=== PATIENT | female | born 1995 | race Caucasian/White ===

== ENCOUNTER 2019-05-06 23:09 | Emergency (ER) | payer SELFPAY ==
[2019-05-07 00:31] LABS: ABSOLUTE EOSINOPHILS # (AUTO) 0.3 10^3/uL (0.0-0.6); ABSOLUTE MONOCYTES (AUTO) 0.9 10^3/uL (0.1-1.4); ABSOLUTE NEUT (AUTO) 9.7 10^3/uL (1.7-8.2); BASOPHILS % (AUTO) 0.4 % (0-2); EOSINOPHILS % (AUTO) 2.3 % (0-6); HEMATOCRIT 39.9 % (36.0-47.0); HEMOGLOBIN 13.5 g/dL (12.0-15.5); LYMPHOCYTES % (AUTO) 15.7 % (13-45); MEAN CORPUSCULAR HEMOGLOBIN 29.5 pg (27.0-33.4); MEAN CORPUSCULAR HGB CONC 33.8 g/dL (32.0-36.0); MEAN CORPUSCULAR VOLUME 87 fl (80-97); MONOCYTES % (AUTO) 6.6 % (3-13); PLATELET COUNT 318 10^3/uL (150-450); RED BLOOD COUNT 4.58 10^6/uL (3.72-5.28); RED CELL DISTRIBUTION WIDTH 12.8 % (11.5-14.0); TOTAL CELLS COUNTED % (AUTO) 100 %; WHITE BLOOD COUNT 12.9 10^3/uL (4.0-10.5)
[2019-05-07 00:34] LABS: ALBUMIN 3.9 g/dL (3.5-5.0); ALKALINE PHOSPHATASE 66 U/L (38-126); ANION GAP 8 (5-19); ASPARTATE AMINO TRANSFERASE 30 U/L (14-36); BILIRUBIN,DIRECT 0.2 mg/dL (0.0-0.4); BILIRUBIN,TOTAL 0.4 mg/dL (0.2-1.3); BLOOD UREA NITROGEN 12 mg/dL (7-20); CALCIUM 8.8 mg/dL (8.4-10.2); CARBON DIOXIDE 28 mmol/L (22-30); CHLORIDE 103 mmol/L (98-107); GLUCOSE 81 mg/dL (75-110); POTASSIUM 4.2 mmol/L (3.6-5.0); TOTAL PROTEIN 6.7 g/dL (6.3-8.2)
[2019-05-07 00:46] LABS: APPEARANCE,URINE HAZY; BILIRUBIN,URINE NEGATIVE (NEGATIVE); COLOR,URINE YELLOW; GLUCOSE, URINE NEGATIVE (NEGATIVE); KETONES,URINE NEGATIVE (NEGATIVE); LEUKOCYTE ESTERASE,URINE LARGE (NEGATIVE); NITRITE,URINE NEGATIVE (NEGATIVE); PROTEIN,URINE 30 mg/dL (NEGATIVE); URINE SPECIFIC GRAVITY 1.022
[2019-05-07] MEDS ORDERED: KETOROLAC TROMETHAMINE INJ/PF 30 MG/1 ML SDV IV ONE (02:53)
--- NOTE | 2019-05-07 03:59 | RADIOLOGY REPORT (SQ) ---
EXAM DESCRIPTION: US ABDOMEN LIMITED COMPLETED DATE/TME: 05/07/2019 02:53 CLINICAL HISTORY: 23 years, Female, ruq pain COMPARISON: None. TECHNIQUE: Limited right upper quadrant ultrasound LIMITATIONS: None. FINDINGS: The liver, pancreas, abdominal aorta are unremarkable. Cholelithiasis. The gallbladder is contracted. Stones in the region of the gallbladder neck. Negative sonographic Nails sign. CBD measures 2 mm. Visualized right kidney unremarkable. No ascites IMPRESSION: Cholelithiasis with stones in the region of the gallbladder neck. No sonographic evidence for cholecystitis copyright 2010 [employer]- All Rights Reserved
--- NOTE | 2019-05-07 04:31 | ER Document Report ---
ED GI/ - General Chief Complaint: Abdominal Pain Stated Complaint: ABDOMINAL PAIN Time Seen by Provider: 05/07/19 02:46 Notes: Patient is a 23-year-old female presents to the emergency department for right upper abdominal pain since Monday night. Patient's denying any nausea, vomiting, diarrhea she is denying any fevers, denies dysuria or vaginal discharge, or bleeding. Patient's denying any medical problems, denies taking any medications, has an allergy to Bactrim. States her last menstrual cycle was the end of December. States she did have a miscarriage approximately 2 months ago and has not had regular periods since. TRAVEL OUTSIDE OF THE [place] IN LAST 30 DAYS: No - Related Data Allergies/Adverse Reactions: sulfamethoxazole [From Bactrim] Allergy (Verified 05/06/19 23:11) trimethoprim [From Bactrim] Allergy (Verified 05/06/19 23:11) Past Medical History - General Information source: Patient - Social History Smoking Status: Never Smoker Family History: Reviewed & Not Pertinent Patient has suicidal ideation: No Patient has homicidal ideation: No Renal/ Medical History: Denies: Hx Peritoneal Dialysis Review of Systems - Review of Systems Constitutional: denies: Fever EENT: No symptoms reported Cardiovascular: No symptoms reported Respiratory: No symptoms reported Gastrointestinal: See HPI Genitourinary: No symptoms reported Female Genitourinary: No symptoms reported Musculoskeletal: No symptoms reported Skin: No symptoms reported Hematologic/Lymphatic: No symptoms reported Neurological/Psychological: No symptoms reported Physical Exam - Vital signs Vitals: Temp Pulse Resp BP Pulse Ox 98.8 F 115 H 16 107/62 100 05/06/19 23:59 05/06/19 23:59 05/06/19 23:59 05/06/19 23:59 05/06/19 23:59 - Notes Notes: GENERAL: Alert, interacts well. No acute distress. HEAD: Normocephalic, atraumatic. EYES: Pupils equal, round, and reactive to light. Extraocular movements intact. ENT: Oral mucosa moist, tongue midline. NECK: Full range of motion. Supple. Trachea midline. LUNGS: Clear to auscultation bilaterally, no wheezes, rales, or rhonchi. No respiratory distress. HEART: Regular rate and rhythm. No murmur ABDOMEN: Soft, generalized right upper quadrant abdominal pain noted. Non- distended. Bowel sounds present in all 4 quadrants. No right lower quadrant pain, no left upper or lower quadrant pain noted. EXTREMITIES: Moves all 4 extremities spontaneously. No edema, normal radial and dorsalis pedis pulses bilaterally. No cyanosis. BACK: no cervical, thoracic, lumbar midline tenderness. No saddle anesthesia, normal distal neurovascular exam. NEUROLOGICAL: Alert and oriented x3. Normal speech. cranial nerves II through XII grossly intact PSYCH: Normal affect, normal mood. SKIN: Warm, dry, normal turgor. No rashes or lesions noted. Course - Re-evaluation Re-evalutation: 05/07/19 04:29 Laboratory 05/07/19 05/07/19 05/07/19 00:00 00:00 00:00 WBC 12.9 H RBC 4.58 Hgb 13.5 Hct 39.9 MCV 87 MCH 29.5 MCHC 33.8 RDW 12.8 Plt Count 318 Lymph % (Auto) 15.7 [place] % (Auto) 6.6 Eos % (Auto) 2.3 Baso % (Auto) 0.4 Absolute Neuts (auto) 9.7 H Absolute Lymphs (auto) 2.0 Absolute Monos (auto) 0.9 Absolute Eos (auto) 0.3 Absolute Basos (auto) 0.0 Seg Neutrophils % 75.0 Sodium 138.8 Potassium 4.2 Chloride 103 Carbon Dioxide 28 Anion Gap 8 BUN 12 Creatinine 0.77 Est GFR ( Amer) > 60 Est GFR (MDRD) Non-Af > 60 Glucose 81 Calcium 8.8 Total Bilirubin 0.4 Direct Bilirubin 0.2 Neonat Total Bilirubin Not Reportable Neonat Direct Bilirubin Not Reportable Neonat Indirect Bili Not Reportable AST 30 ALT 29 Alkaline Phosphatase 66 Total Protein 6.7 Albumin 3.9 Lipase 44.9 Urine Color YELLOW Urine Appearance HAZY Urine pH 7.0 Ur Specific [place] 1.022 Urine Protein 30 H Urine Glucose (UA) NEGATIVE Urine Ketones NEGATIVE Urine Blood NEGATIVE Urine Nitrite NEGATIVE Urine Bilirubin NEGATIVE Urine Urobilinogen 8.0 H Ur Leukocyte Esterase LARGE H Urine WBC (Auto) 7 Urine RBC (Auto) 2 Squamous Epi Cells Auto 8 Urine Mucus (Auto) RARE Urine Ascorbic Acid NEGATIVE Urine HCG, Qual NEGATIVE Abdomen Ultrasound 05/07/19 02:53 IMPRESSION: Cholelithiasis with stones in the region of the gallbladder neck. No sonographic evidence for cholecystitis copyright 2011 [employer]- All Rights Reserved Upon reassessment of the patient she states her pain has resolved with Toradol. I discussed with her diagnosis of cholelithiasis and need to follow-up outpatient with surgery. At this time will discharge with return precautions and follow-up re commendations. Verbal discharge instructions given a the bedside and opportunity for questions given. Medication warnings reviewed. Patient is in agreement with this plan and has verbalized understanding of return precautions and the need for primary care follow-up in the next 24-72 hours. This medical record was dictated with voice recognizing software. There may be grammatical, syntax errors that are unintended. - Vital Signs Vital signs: Temp Pulse Resp BP Pulse Ox 97.8 F 100 16 113/64 99 05/07/19 02:43 05/07/19 02:43 05/07/19 02:43 05/07/19 02:43 05/07/19 02:43 - Laboratory Result Diagrams: 05/07/19 00:00 05/07/19 00:00 Laboratory results interpreted by me: 05/07/19 05/07/19 00:00 00:00 WBC 12.9 H Absolute Neuts (auto) 9.7 H Urine Protein 30 H Urine Urobilinogen 8.0 H Ur Leukocyte Esterase LARGE H Discharge - Discharge Clinical Impression: Cholelithiasis Qualifiers: Cholelithiasis location: other site Biliary obstruction: without biliary obstruction Qualified Code(s): K80.80 - Other cholelithiasis without obstruction Condition: Stable Disposition: HOME, SELF-CARE Instructions: Gallbladder Disease ([facility]) Additional Instructions: As we discussed you have been seen and treated in the emergency department for your right upper abdominal pain. Your ultrasound shows that you have gallstones. There are no signs of infection around your gallstones. You should follow-up with a surgeon for elective removal of your gallbladder. Phone numbers to be provided in this packet. Please also return to the emergency room should you have increasing right upper quadrant abdominal pain, fever, uncontrolled vomiting or pain. Forms: Return to Work Referrals: FRANCOIS ARREOLA MD [ACTIVE STAFF] - Follow up as needed
[2019-05-07 04:41] VITALS: BP 115/69
== END 2019-05-07 04:41 | disposition home or self-care (01) ==
LOC: ER 23:09
DX: K80.80 Other cholelithiasis without obstruction (principal); R10.11 Right upper quadrant pain; Z88.3 Allergy status to other anti-infective agents
CPT/HCPCS: 36415; 83690; 85025; 81025; 80053; 81001; 76705; J1885; 96374; 99284

== ENCOUNTER 2019-05-14 10:32 | Emergency (ER) | payer SELFPAY ==
--- NOTE | 2019-05-14 11:16 | ER Document Report ---
ED Medical Screen (RME) - General Chief Complaint: Upper Abdominal Pain Stated Complaint: ABDOMINAL PAIN Time Seen by Provider: 05/14/19 11:12 Mode of Arrival: Ambulatory Information source: Patient Notes: 23-year-old female presents today with right upper quad abdominal pain. Reports she is had it for weeks. Reports she was told she had gallstones followed up with a surgeon who prescribed antibiotics for possible ulcer. She reports pains increasing. No fever vomiting or diarrhea. She reports it hurts so bad she cannot walk. I have greeted and performed a rapid initial assessment of this patient. A comprehensive ED assessment and evaluation of the patient, analysis of test results and completion of the medical decision making process will be conducted by additional ED providers. Dictation of this chart was performed using voice recognition software; therefore, there may be some unintended grammatical errors. TRAVEL OUTSIDE OF THE [place] IN LAST 30 DAYS: No - Related Data Allergies/Adverse Reactions: sulfamethoxazole [From Bactrim] Allergy (Verified 05/14/19 11:10) trimethoprim [From Bactrim] Allergy (Verified 05/14/19 11:10) Past Medical History - Social History Chew tobacco use (# tins/day): No Frequency of alcohol use: None Drug Abuse: None Renal/ Medical History: Denies: Hx Peritoneal Dialysis Physical Exam - Vital signs Vitals: Temp Pulse Resp BP Pulse Ox 98.7 F 98 16 114/73 98 05/14/19 10:41 05/14/19 10:41 05/14/19 10:41 05/14/19 10:41 05/14/19 10:41 Course - Vital Signs Vital signs: Temp Pulse Resp BP Pulse Ox 98.7 F 98 16 114/73 98 05/14/19 10:41 05/14/19 10:41 05/14/19 10:41 05/14/19 10:41 05/14/19 10:41
[2019-05-14 12:18] LABS: ABSOLUTE BASOPHILS # (AUTO) 0.1 10^3/uL (0.0-0.2); ABSOLUTE EOSINOPHILS # (AUTO) 0.5 10^3/uL (0.0-0.6); ABSOLUTE LYMPHOCYTES (AUTO) 2.3 10^3/uL (0.5-4.7); ABSOLUTE MONOCYTES (AUTO) 0.7 10^3/uL (0.1-1.4); ABSOLUTE NEUT (AUTO) 6.3 10^3/uL (1.7-8.2); BASOPHILS % (AUTO) 0.6 % (0-2); EOSINOPHILS % (AUTO) 4.8 % (0-6); HEMATOCRIT 38.8 % (36.0-47.0); HEMOGLOBIN 13.4 g/dL (12.0-15.5); LYMPHOCYTES % (AUTO) 23.5 % (13-45); MEAN CORPUSCULAR HEMOGLOBIN 30.3 pg (27.0-33.4); MEAN CORPUSCULAR HGB CONC 34.6 g/dL (32.0-36.0); MEAN CORPUSCULAR VOLUME 88 fl (80-97); PLATELET COUNT 338 10^3/uL (150-450); RED BLOOD COUNT 4.42 10^6/uL (3.72-5.28); RED CELL DISTRIBUTION WIDTH 12.9 % (11.5-14.0); SEGMENTED NEUTROPHILS % (AUTO) 64.1 % (42-78); TOTAL CELLS COUNTED % (AUTO) 100 %; WHITE BLOOD COUNT 9.8 10^3/uL (4.0-10.5)
--- NOTE | 2019-05-14 12:30 | ER Document Report ---
ED General - General Chief Complaint: Upper Abdominal Pain Stated Complaint: ABDOMINAL PAIN Time Seen by Provider: 05/14/19 11:12 Mode of Arrival: Ambulatory TRAVEL OUTSIDE OF THE [place] IN LAST 30 DAYS: No - HPI Notes: Patient is a 23-year-old female with no significant past medical history aside from gallstones who presents complaining of right upper quadrant pain that she has been having issues with over the past 2 to 3 weeks. Patient states that the pain was intermittent couple weeks ago, but has become consistent over the past few days. Patient was found to have a gallstone near the gallbladder neck at her evaluation 8 days ago. Patient then followed up with general surgery, Dr. Roberts, 6 days ago and was placed on antibiotics for possible ulcer. They wanted her to try antibiotics for couple weeks before attributing pain and discomfort to the gallbladder. Patient states that she has not noticed any improvement in symptoms on antibiotics, but the pain has become now consistent. The pain radiates to the right scapula. She is able to eat and drink without d ifficulty otherwise. She is urinating normally and having normal bowel movements. Denies any headache, fever, neck pain, URI, sore throat, chest pain, palpitations, syncope, cough, shortness of breath, wheeze, dyspnea, nausea/vomiting/diarrhea, urinary retention, dysuria, hematuria, loss of control of bowel or bladder, numbness/tingling, saddle anesthesia, muscle paralysis/weakness, or rash. - Related Data Allergies/Adverse Reactions: sulfamethoxazole [From Bactrim] Allergy (Verified 05/14/19 11:10) trimethoprim [From Bactrim] Allergy (Verified 05/14/19 11:10) Past Medical History - General Information source: Patient - Social History Smoking Status: Never Smoker Chew tobacco use (# tins/day): No Frequency of alcohol use: None Drug Abuse: None Family History: Reviewed & Not Pertinent Patient has suicidal ideation: No Patient has homicidal ideation: No Renal/ Medical History: Denies: Hx Peritoneal Dialysis Review of Systems - Review of Systems -: Yes All other systems reviewed and negative Physical Exam - Vital signs Vitals: Temp Pulse Resp BP Pulse Ox 98.7 F 98 16 114/73 98 05/14/19 10:41 05/14/19 10:41 05/14/19 10:41 05/14/19 10:41 05/14/19 10:41 - Notes Notes: PHYSICAL EXAMINATION: GENERAL: Well-appearing, well-nourished and in no acute distress. HEAD: Atraumatic, normocephalic. EYES: Pupils equal round and reactive to light, extraocular movements intact, sclera anicteric, conjunctiva are normal. ENT: EAC clear b/l. TM's intact b/l without erythema, fluid, or perforation. Nares patent and without discharge. oropharynx clear without exudates. No tonsilar hypertrophy or erythema. Moist mucous membranes. No sinus tenderness. NECK: Normal range of motion, supple without lymphadenopathy LUNGS: Breath sounds clear to auscultation bilaterally and equal. No wheezes rales or rhonchi. HEART: Regular rate and rhythm without murmurs, rubs, gallops. ABDOMEN: Soft, nondistended abdomen. No guarding, no rebound. Normal bowel so unds present. No CVA tenderness bilaterally. + tenderness RUQ to palp. No tenderness at McBurney point. Musculoskeletal: FROM to passive/active. Strength 5+/5. Extremities: No cyanosis, clubbing, or edema b/l. Peripheral pulses 2+. Capillary refill less than 3 seconds. NEUROLOGICAL: Normal speech, normal gait. PSYCH: Normal mood, normal affect. SKIN: Warm, Dry, normal turgor, no rashes or lesions noted. Course - Re-evaluation Re-evalutation: 05/14/19 14:33 Call placed to her surgeon, Dr. Roberts, for consult. He cannot take the call right now as he is in the middle of a procedure. 05/14/19 15:30 Dr. Roberts called- he placed her on antacid medication, not antibiotics (reconfirmed with patient who agrees). Recommends GI cocktail trial and if no improvement to have Dr. Cordoba evelle the patient. Pt in agreement. 05/14/19 16:21 GI cocktail did not help. I spoke with Dr. Cordoba who will come eval the patient. 05/14/19 18:40 I have been in discussion with Dr. Cordoba who eval'd the patient twice already. Tylenol did help with symptoms. He offered admission vs outpt f/u and patient would like to follow-up as an outpatient with Dr. Roberts. Patient is an afebrile, well-hydrated, 23-year-old female who presents with cholelithiasis and right upper quadrant pain, unspecified. Vitals are acceptable without significant tachycardia, tachypnea, or hypoxia. PE is otherwise unremarkable. Labs are unremarkable, urinalysis I do suspect to be contaminant as patient is otherwise asymptomatic. We will hold off on antibiotics until culture returns as she is asymptomatic with epithelial cells noted within the urine sample provided. Patient is nontoxic-appearing and is able to tolerate p.o. without difficulty. See ultrasound report. Patient has declined admission today and wishes to remain in outpatient for follow-up with her general surgeon. Low suspicion/risk for acute appendicitis, bowel obst ruction, acute cholecystitis, acute cholangitis, perforated diverticulitis, incarcerated hernia, pancreatitis, perforated ulcer, peritonitis, sepsis, pelvic inflammatory disease, ectopic , tubo-ovarian abscess, ovarian torsion, or other systemic emergent condition at this time. Patient is aware that her condition can change from initial presentation and she needs to monitor symptoms closely and seek medical attention if any acute changes. Avoid greasy and fatty foods. Conservative measures otherwise for symptoms. Recheck with your PCM in 2-[address] Roberts tomorrow to schedule an appointment for re-eval. Return to the ED with any worsening/concerning symptoms otherwise as reviewed in discharge. Patient is in agreement. - Vital Signs Vital signs: Temp Pulse Resp BP Pulse Ox 98.7 F 98 16 114/73 98 05/14/19 10:41 05/14/19 10:41 05/14/19 10:41 05/14/19 10:41 05/14/19 10:41 - Laboratory Result Diagrams: 05/14/19 12:04 05/14/19 12:04 Laboratory results interpreted by me: 05/14/19 05/14/19 12:04 12:04 AST 88 H Urine Protein 30 H Urine Blood LARGE H Ur Leukocyte Esterase SMALL H Discharge - Discharge Clinical Impression: RUQ pain Cholelithiasis Qualifiers: Cholelithiasis location: gallbladder Cholecystitis presence: without cholecystitis Biliary obstruction: without biliary obstruction Qualified Code(s): K80.20 - Calculus of gallbladder without cholecystitis without obstruction Condition: Stable Disposition: HOME, SELF-CARE Additional Instructions: Maintain adequate fluid and food intake Avoid greasy and fatty foods tylenol if needed Monitor for any worsening symptoms Make sure you are staying hydrated enough to urinate and have normal BM's Recheck with your PCM in 2-[address] Roberts tomorrow to schedule f/u appointment Return to the ED with any worsening symptoms and/or development of fever, headache, chest pain, palpitations, syncope, shortness of breath, trouble breathing, abdominal pain, n/v/d, blood in stool/urine, weakness, or other worsening symptoms that are concerning to you. Prescriptions: Sucralfate [Carafate] 1 gm PO BID #100 ml Referrals: RAYNA ROBERTS MD [ACTIVE STAFF] - Follow up in 3-5 days
[2019-05-14 12:40] LABS: ALBUMIN 3.9 g/dL (3.5-5.0); ALKALINE PHOSPHATASE 57 U/L (38-126); ANION GAP 8 (5-19); ASPARTATE AMINO TRANSFERASE 88 U/L (14-36); BILIRUBIN,DIRECT 0.1 mg/dL (0.0-0.4); BILIRUBIN,TOTAL 0.3 mg/dL (0.2-1.3); BLOOD UREA NITROGEN 9 mg/dL (7-20); CALCIUM 9.1 mg/dL (8.4-10.2); CARBON DIOXIDE 30 mmol/L (22-30); CHLORIDE 103 mmol/L (98-107); GLUCOSE 96 mg/dL (75-110); POTASSIUM 3.9 mmol/L (3.6-5.0); TOTAL PROTEIN 7.3 g/dL (6.3-8.2)
[2019-05-14 12:46] LABS: AMORPHOUS SEDIMENT,URINE TRACE /HPF; APPEARANCE,URINE CLOUDY; BILIRUBIN,URINE NEGATIVE (NEGATIVE); COLOR,URINE YELLOW; GLUCOSE, URINE NEGATIVE (NEGATIVE); KETONES,URINE NEGATIVE (NEGATIVE); LEUKOCYTE ESTERASE,URINE SMALL (NEGATIVE); NITRITE,URINE NEGATIVE (NEGATIVE); PROTEIN,URINE 30 mg/dL (NEGATIVE); URINE SPECIFIC GRAVITY 1.018; UROBILINOGEN,URINE NEGATIVE mg/dL (<2.0)
--- NOTE | 2019-05-14 14:14 | RADIOLOGY REPORT (SQ) ---
EXAM DESCRIPTION: U/S ABDOMEN LIMITED W/O DOP COMPLETED DATE/TIME: 05/14/2019 1:57 pm REASON FOR STUDY: ruq pain COMPARISON: Ultrasound of the abdomen from 05/07/2019. TECHNIQUE: Dynamic and static grayscale images acquired of the abdomen and recorded on PACS. Zairao mansi selected color Doppler and spectral images recorded. LIMITATIONS: None. FINDINGS: PANCREAS: The visualized portions of the pancreas appear normal. LIVER: Increased echogenicity of the pancreatic parenchyma suggestive of hepatic steatosis. LIVER VASCULATURE: Normal directional flow of the main portal vein and hepatic veins. GALLBLADDER: The gallbladder wall measures 1.9 mm in thickness. There are calculi within the gallbla dder lumen. There is no pericholecystic fluid. ULTRASOUND-DETECTED TUCKER'S SIGN: Negative. INTRAHEPATIC DUCTS AND COMMON DUCT: The common bile duct measures 2.2 mm in diameter. There is no di latation of the intrahepatic biliary ducts. INFERIOR VENA CAVA: Normal flow. AORTA: No aneurysm. RIGHT KIDNEY: The right kidney measures 9.7 cm in length. There is no hydronephrosis. PERITONEAL AND RIGHT PLEURAL SPACE: No ascites or effusions. OTHER: No other findings. IMPRESSION: 1. Cholelithiasis without other ancillary findings of acute cholecystitis. 2. Hepatic steatosis. TECHNICAL DOCUMENTATION: JOB ID: [id number] [employer]- All Rights Reserved Reading location - IP/workstation name: [email or web address]
[2019-05-14] MEDS ORDERED: MAG HYDROX/AL HYDROX/SIMETH SUSP 30 ML UDCUP PO ONE (15:37)
[2019-05-14] MEDS ORDERED: LIDOCAINE 2% VISCOUS SOLN 20 ML UDCUP PO ONE (15:37)
[2019-05-14] MEDS ORDERED: METOCLOPRAMIDE HCL ORAL SOLN 10 MG/10 ML UDCUP PO ONE (15:37)
[2019-05-14] MEDS ORDERED: ACETAMINOPHEN 325 MG TABLET PO ONE (16:35)
--- NOTE | 2019-05-14 19:01 | PDOC CONSULTATION ---
Consultation Consult Date: 05/14/19 Provider Consulted: KYREE BALBUENA Consult reason:: RUQ pains History of Present Illness Patient complains of: RUQ pains History of Present Illness: LAZARA ZAMORANO is a 23 year old femalewith known gallstones. C/o persistent RUQ pains . Saw Dr Roberts in the clinic for abdominal painslikely related to gastritis. Talked to Dr Roberts. Patient had another ultrasound today which showed gallstoes without evidence of cholecystitis. She claims her pains make her difficult to breath. Denies fever or chills. No nausea/vomiting. Social History Smoking Status: Never Smoker Family History Family History: Reviewed & Not Pertinent Parental Family History Reviewed: Yes Children Family History Reviewed: No Sibling(s) Family History Reviewed.: No Medication/Allergy Home Medications: Cephalexin [Keflex] 500 mg PO BID #14 capsule 03/19/19 Metoclopramide HCl [Reglan 10 mg Tablet] 1 - 2 tab PO ASDIR PRN #25 tablet 03/19/19 Sucralfate [Carafate] 1 gm PO BID #100 ml 05/14/19 Allergies/Adverse Reactions: sulfamethoxazole [From Bactrim] Allergy (Verified 05/14/19 11:10) trimethoprim [From Bactrim] Allergy (Verified 05/14/19 11:10) Review of Systems Constitutional: PRESENT: as per HPI Gastrointestinal: PRESENT: abdominal pain Physical Exam Vital Signs: Temp Pulse Resp BP Pulse Ox 98.7 F 98 16 114/73 98 05/14/19 10:41 05/14/19 10:41 05/14/19 10:41 05/14/19 10:41 05/14/19 10:41 Intake & Output 05/13/19 05/14/19 05/15/19 06:59 06:59 06:59 Weight 88.8 kg General appearance: PRESENT: no acute distress Head exam: PRESENT: atraumatic Eye exam: PRESENT: conjunctiva pink Mouth exam: PRESENT: moist Neck exam: PRESENT: full ROM GI/Abdominal exam: PRESENT: soft, tenderness - mild tenderness RUQ and epigastrium Neurological exam: PRESENT: alert, oriented to person, oriented to place, oriented to time, oriented to situation Psychiatric exam: PRESENT: appropriate affect Skin exam: PRESENT: normal color, warm Results Laboratory Results: 05/14/19 12:04 05/14/19 12:04 05/14/19 05/14/19 05/14/19 12:04 12:04 12:04 WBC 9.8 RBC 4.42 Hgb 13.4 Hct 38.8 MCV 88 MCH 30.3 MCHC 34.6 RDW 12.9 Plt Count 338 Seg Neutrophils % 64.1 Sodium 140.7 Potassium 3.9 Chloride 103 Carbon Dioxide 30 Anion Gap 8 BUN 9 Creatinine 0.66 Est GFR ( Amer) > 60 Glucose 96 Calcium 9.1 Total Bilirubin 0.3 AST 88 H Alkaline Phosphatase 57 Total Protein 7.3 Albumin 3.9 Lipase 38.8 Urine Color YELLOW Urine Appearance CLOUDY Urine pH 5.0 Ur Specific [place] 1.018 Urine Protein 30 H Urine Glucose (UA) NEGATIVE Urine Ketones NEGATIVE Urine Blood LARGE H Urine Nitrite NEGATIVE Ur Leukocyte Esterase SMALL H Urine WBC (Auto) 25 Urine RBC (Auto) 5 Impressions: Abdomen Ultrasound 05/14/19 11:14 IMPRESSION: 1. Cholelithiasis without other ancillary findings of acute cholecystitis. 2. Hepatic steatosis. Assessment & Plan - Diagnosis (1) Gastritis Is this a current diagnosis for this admission?: Yes (2) Cholelithiasis Qualifiers: Cholelithiasis location: gallbladder Cholecystitis presence: without cholecystitis Biliary obstruction: without biliary obstruction Qualified Code(s): K80.20 - Calculus of gallbladder without cholecystitis without obstruction Is this a current diagnosis for this admission?: Yes (3) RUQ pain Is this a current diagnosis for this admission?: Yes - Time Time Spent: 30 to 50 Minutes - Plan Summary Plan Summary: Have D/W Dr Roberts. He said patient needs EGD prior to possible cholecystectomy Patient has gallstones but without WBC elevation. Symptoms maybe more to due to gastriris. Patient informed to call Dr Roberts tomorrow and see if her EGD can be done earlier Contnue antigastritis regimen and avoid fatty foods OK to discharge from ED
[2019-05-14 19:18] VITALS: BP 115/71
== END 2019-05-14 19:15 | disposition home or self-care (01) ==
LOC: ER 10:32
DX: K80.20 Calculus of gallbladder without cholecystitis without obstruction (principal); R10.11 Right upper quadrant pain; R10.811 Right upper quadrant abdominal tenderness; Z88.1 Allergy status to other antibiotic agents
CPT/HCPCS: 99284; 36415; 87086; 83690; 85025; 81025; 80053; 81001; 76705; J3490